=== PATIENT | male | born 1960 | race Caucasian/White ===

== ENCOUNTER 2019-05-02 19:14 | Emergency (ER) | payer OTHER ==
[~2019-05-02] VITALS: Ht 185.4 cm; Wt 92.5 kg
[2019-05-02] MEDS ORDERED: ZANTAC300 MG (19:51)
[2019-05-02] MEDS ORDERED: XARELTO20 MG (19:53)
[2019-05-02] MEDS ORDERED: ATIVAN1 M1 (19:54)
[2019-05-02] MEDS ORDERED: ATIVAN2 M1 (19:55)
[2019-05-02] MEDS ORDERED: VITAMIN C500 M5 (19:56)
[2019-05-02] MEDS ORDERED: PROLIA60 MG/1 ML (19:57)
[2019-05-02] MEDS ORDERED: VITAMIN D5000 UNIT (19:57)
[2019-05-02] MEDS ORDERED: WELLBUTRIN XL300 MG (19:58)
== END 2019-05-03 03:39 | disposition home or self-care (01) ==
LOC: ER 19:14
DX: K52.9 Noninfective gastroenteritis and colitis, unspecified (principal); R10.32 Left lower quadrant pain

== ENCOUNTER 2019-05-11 14:24 | Emergency (ER) | payer OTHER ==
[~2019-05-11] VITALS: Ht 185.4 cm; Wt 92.5 kg
[~2019-05-11 14:24] MED LIST: ATIVAN1 M1; ATIVAN2 M1; PROLIA60 MG/1 ML; VITAMIN C500 M5; VITAMIN D5000 UNIT; WELLBUTRIN XL300 MG; XARELTO20 MG; ZANTAC300 MG
== END 2019-05-11 22:08 | disposition home or self-care (01) ==
LOC: ER 14:24
DX: R12 Heartburn (principal); E86.0 Dehydration

== ENCOUNTER 2019-05-15 11:00 | Inpatient (IN) | payer OTHER ==
[~2019-05-15] VITALS: Ht 182.9 cm; Wt 88.9 kg
[2019-05-24] MEDS ORDERED: INTESTINEX680 M1 PO (09:17)
[2019-05-24] MEDS ORDERED: PERCOCET 5-3251 EACH PO (09:17)
== END 2019-05-24 11:23 | disposition home or self-care (01) | DRG 333 ==
LOC: EDUNIT# 11:00 → O/R 05-21 05:09 → SURG 05-21 05:09 → SURH 05-21 07:00 → SURG 05-21 12:01
PROVIDERS: ADMIT Surgery
PROC: 0DJD8ZZ Inspection of Lower Intestinal Tract, Via Natural or Artificial Opening Endoscopic (ICD-10-PCS; 2019-05-21)
PROC: 0DTP4ZZ Resection of Rectum, Percutaneous Endoscopic Approach (ICD-10-PCS; principal; 2019-05-21 07:00)
DX: K57.20 Diverticulitis of large intestine with perforation and abscess without bleeding (principal); K55.1 Chronic vascular disorders of intestine; I82.592 Chronic embolism and thrombosis of other specified deep vein of left lower extremity; R10.32 Left lower quadrant pain; N40.0 Benign prostatic hyperplasia without lower urinary tract symptoms; Z79.01 Long term (current) use of anticoagulants

== ENCOUNTER 2019-05-26 14:01 | Emergency (ER) | payer OTHER ==
[~2019-05-26] VITALS: Ht 185.4 cm; Wt 88.0 kg
[~2019-05-26 14:01] MED LIST changes: +INTESTINEX680 M1 PO; +PERCOCET 5-3251 EACH PO
[2019-05-26] MEDS ORDERED: SKELAXIN800 MG PO (20:14)
== END 2019-05-26 20:31 | disposition home or self-care (01) ==
LOC: ER 14:01
DX: M79.662 Pain in left lower leg (principal); M79.661 Pain in right lower leg

== ENCOUNTER 2019-06-17 17:39 | Emergency (ER) | payer OTHER ==
[~2019-06-17] VITALS: Ht 185.4 cm; Wt 88.0 kg
[~2019-06-17 17:39] MED LIST changes: +SKELAXIN800 MG PO
[2019-06-18] MEDS ORDERED: INTESTINEX680 M1 PO (00:31)
[2019-06-18] MEDS ORDERED: GAS-X125 MG PO (00:31)
== END 2019-06-18 00:41 | disposition home or self-care (01) ==
LOC: ER 17:39
DX: R10.32 Left lower quadrant pain (principal)

== ENCOUNTER 2019-12-01 17:16 | Emergency (ER) | payer OTHER ==
[~2019-12-01] VITALS: Ht 182.9 cm; Wt 99.8 kg
[~2019-12-01 17:16] MED LIST changes: +GAS-X125 MG PO
== END 2019-12-01 22:24 | disposition home or self-care (01) ==
LOC: ER 17:16
DX: K59.09 Other constipation (principal)